=== PATIENT | female | born 1960 | race Caucasian/White ===

== ENCOUNTER → 2016-09-11 | Outpatient (CLI) | payer OTHER ==
[~2016-09-11] MED LIST: ANTIVERT PO; NO MEDICATIONS; SIMVASTATIN10 MG PO; SYNTHROID75 MCG PO; ZESTORETIC 20-1 EAC1 PO
--- NOTE | ~2016-09-11 | MY29 ---
[facility] A Service of [facility] RADIOLOGY TEXT RESULTS PATIENT: ABRIL CARVER LOCATION: [facility] : 60 UNIT #: [id number] AGE: [address]: Bashir Milian MD SEX: F ORDER DR: [id number] [facility] [address] [place], [place] [address] [id number] O MR#: [id number] Acc #: [id number] NAME: ABRIL CARVER : 1960 SEX: F STUDY DATE/TIME: 09/11/2016 12:04 UNIT: [facility] ROOM: STUDY DESCRIPTION: MY DAVIDA SCREENING W/ CAD BILAT Attending Physician: Bashir Milian M.D. Ordering Physician: Bashir Milian M.D. Primary Care Physician: Bashir Milian M.D. MEDICAL IMAGING REPORT This report is preliminary unless electronic signature is present EXAM Digital screening mammogram, 09/11/2016, [facility]. HISTORY 56-year-old woman no risk elevation. Annual screen. COMPARISON Mammograms date to 12/23/2004 with most recent 09/04/2015. FINDINGS Digital imaging of each breast was completed utilizing standard craniocaudal and mediolateral-oblique projections. Review and interpretation of digital mammograms include a second review in conjunction with FDA-approved CAD device. There is an overall increase in the parenchymal presentation bilaterally with a generalized fibronodular pattern in each breast. There are no breast masses and I see no asymmetry in the parenchymal presentation. There are no suspicious microcalcifications and I see no architectural disturbance. IMPRESSION Benign mammogram. One-year followup recommended. Patients over the age of 40 are entered into a reminder system with target due date for the next mammogram. A result letter will also be sent to the patient. BIRADS: 2 Benign finding ADDENDUM The image-guided biopsy marker stable in the left breast. [facility] A Service [facility] RADIOLOGY TEXT RESULTS PATIENT: ABRIL CARVER LOCATION: [facility] : 60 UNIT #: [id number] AGE: [address]: Bashir Milian MD SEX: F ORDER DR: Dictated by... Justin Rascon M.D. THIS IS AN ELECTRONICALLY VERIFIED REPORT Justin Rascon M.D. at 09/11/2016 3:32 PM FITO/julián TD: 09/11/2016 15:26 JOB #: [id number] MEDICAL IMAGING REPORT Page 1 of 1 COPY
== END | disposition home or self-care (01) ==
LOC: CWCC 11:41
DX: Z12.31 Encounter for screening mammogram for malignant neoplasm of breast (principal); Z98.890 Other specified postprocedural states
CPT/HCPCS: G0202